=== PATIENT | female | born 1990 | race Caucasian/White ===

== ENCOUNTER 2023-03-26 19:04 | Emergency (ER) | payer MEDICAID ==
[~2023-03-26] VITALS: Ht 160 cm; Wt 72.6 kg
[2023-03-26 19:39] VITALS: BP_SYST 117; PULSE 104; RESP 17; TEMP 97.8; O2SAT 98
--- NOTE | 2023-03-26 19:45 | NUR ---
Patient triaged and placed in waiting room. VS checked and patient appears in no acute distress at this time. Accompanied by self, awaiting available bed, and MD notified of need for MSE.
--- NOTE | 2023-03-26 21:20 | NUR ---
ER Dr. MEJIA at bedside examining patient.
[2023-03-26] MEDS ORDERED: KETOROLAC TROMETHAMINE 60 MG/2 ML VIAL IM ONE (21:30)
[2023-03-26] MEDS ORDERED: PRED20TA PO (21:35)
[2023-03-26 21:50] VITALS: BP_SYST 120; PULSE 98; RESP 17; O2SAT 98
--- NOTE | 2023-03-26 21:50 | NUR ---
Patient given written and verbal discharge instructions and verbalizes understanding. ER DR MEJIA discussed with patient the results and treatment provided. Patient in stable condition. ID arm band removed. Rx of PREDNISONE given. Patient educated on pain management and to follow up with PMD. Pain Scale 0/10. Opportunity for questions provided and answered. Medication side effect fact sheet provided.
[2023-03-26] MEDS ORDERED: IBUP-1971 PO (21:54)
== END 2023-03-26 21:50 | disposition home or self-care (01) ==
LOC: SED 19:04
DX: M79.10 Myalgia, unspecified site (principal); R50.9 Fever, unspecified; Z79.899 Other long term (current) drug therapy; Z20.822 Contact with and (suspected) exposure to COVID-19
CPT/HCPCS: 99283; 87426; 36415; 96372; 87804 ×2; J1885